=== PATIENT | female | born 1960 | race Caucasian/White ===

== ENCOUNTER 2021-06-12 13:41 | Emergency (ER) | payer MEDICAID ==
[~2021-06-12] VITALS: Ht 162.6 cm; Wt 60.5 kg
[2021-06-12] MEDS ORDERED: ZPAK PO (15:51)
[2021-06-12 16:10] VITALS: BP 126/64
== END 2021-06-12 16:10 | disposition home or self-care (01) ==
LOC: ED 13:41
DX: U07.1 COVID-19 (principal); F17.210 Nicotine dependence, cigarettes, uncomplicated